=== PATIENT | female | born 1945 | race Caucasian/White ===

== ENCOUNTER 2017-12-27 16:37 | Inpatient (IN) | payer MEDICARE ==
[~2017-12-27] VITALS: Ht 165.1 cm; Wt 79.4 kg
--- NOTE | 2017-12-27 17:27 | EKG ---
[address] [address] Test Date: 2017-12-27 Test Time: 16:43:15 Pat Name: MARTINA TAPIA Department: Room: Gender: F Rn Call Center: : 1945 Requested By: SHELL JOY Order Number: [id number] Reading MD: Crescencio Turner MD Measurements Intervals [place] Rate: 89 P: 49 [place]: 166 QRS: 17 QRSD: 86 T: 52 QT: 344 QTc: 420 Interpretive Statements SINUS RHYTHM Electronically Signed On 12-31-2017 9:33:38 CDT by Crescencio Turner MD
[2017-12-27 17:40] LABS: BASO % 0 % (0-3); EOS # 0.2 x10^3/uL (0.0-0.7); EOS % 4 % (0-3); HEMATOCRIT 37.7 % (36.0-47.0); HEMOGLOBIN 12.7 g/dL (12.0-15.5); LYMPH # 1.2 x10^3/uL (1.0-4.8); LYMPH % 31 % (24-48); MEAN CORPUSCULAR HEMOGLOBIN 29 pg (25-35); MEAN CORPUSCULAR HGB CONC 34 g/dL (31-37); MEAN CORPUSCULAR VOLUME 86 fL (79-100); MONO # 0.5 x10^3/uL (0.0-1.1); MONO % 12 % (0-9); NEUT # 2.1 x10^3uL (1.8-7.7); NEUT % 53 % (31-73); PLATELET COUNT 154 x10^3/uL (140-400); RED BLOOD COUNT 4.37 x10^6/uL (3.50-5.40); RED CELL DISTRIBUTION WIDTH 14.4 % (11.5-14.5); WHITE BLOOD COUNT 3.9 x10^3/uL (4.0-11.0)
--- NOTE | 2017-12-27 17:41 | PHYS DOC ---
Past History Past Medical History: Anxiety, Bipolar, Depression Past Surgical History: No Surgical History Alcohol Use: None Drug Use: None Adult General Chief Complaint Chief Complaint: PSYCH EVALUATION HPI HPI 72-year-old female presents for behavioral health evaluation. The patient has been accepted by [facility]. She is reported to be in a manic phase for the last 1 month. She has been having delusions of people being after her. She has also had suicidal thoughts to include a plan of cutting herself. She stated "feel I wanted to withhold stated". She is accompanied by her daughter. Review of Systems Review of Systems Constitutional: Denies fever or chills [] Eyes: Denies change in visual acuity, redness, or eye pain [] HENT: Denies nasal congestion or sore throat [] Respiratory: Denies cough or shortness of breath [] Cardiovascular: No additional information not addressed in HPI [] GI: Denies abdominal pain, nausea, vomiting, bloody stools or diarrhea [] : Denies dysuria or hematuria [] Musculoskeletal: Denies back pain or joint pain [] Integument: Denies rash or skin lesions [] Neurologic: Denies headache, focal weakness or sensory changes [] Endocrine: Denies polyuria or polydipsia [] All other systems were reviewed and found to be within normal limits, except as documented in this note. Physical Exam Physical Exam Constitutional: Well developed, well nourished, no acute distress, non-toxic appearance. [] HENT: Normocephalic, atraumatic, bilateral external ears normal, oropharynx moist, no oral exudates, nose normal. [] Eyes: PERRLA, EOMI, conjunctiva normal, no discharge. [] Neck: Normal range of motion, no tenderness, supple, no stridor. [] Cardiovascular:Heart rate regular rhythm, no murmur [] Lungs & Thorax: Bilateral breath sounds clear to auscultation [] Abdomen: Bowel sounds normal, soft, no tenderness, no masses, no pulsatile masses. [] Skin: Warm, dry, no erythema, no rash. [] Back: No tenderness, no CVA tenderness. [] Extremities: No tenderness, no cyanosis, no clubbing, ROM intact, no edema. [] Neurologic: Alert and oriented X 3, normal motor function, normal sensory function, no focal deficits noted. [] Psychologic: Hyperactive, [] EKG EKG Sinus rhythm, rate 89, normal axis, nose elevations or depressions.[] Radiology/Procedures Radiology/Procedures [] Course & Med Decision Making Course & Med Decision Making Pertinent Labs and Imaging studies reviewed. (See chart for details) The patient's labs are significant for a slightly elevated creatinine and an elevated BUN. I have no previous records for comparison. I believe this will correct with proper oral rehydration during her admission. Her urine has some markers for infection, but given 0 bacteria and the fact that she is asymptomatic, I will wait on treatment pending culture results. She is stable for admission to the psych floor. [] Dragon Disclaimer Dragon Disclaimer This electronic medical record was generated, in whole or in part, using a voice recognition dictation system. Departure Departure: Referrals: RASHAD HAMILTON (PCP) SHELL JOY DO Dec 27, 2017 17:41
[2017-12-27 17:51] LABS: ALBUMIN 3.5 g/dL (3.4-5.0); ALBUMIN/GLOBULIN RATIO 1.1 (1.0-1.7); CALCIUM 9.2 mg/dL (8.5-10.1); CREATININE 1.4 mg/dL (0.6-1.0); MAGNESIUM 2.2 mg/dL (1.8-2.4); POTASSIUM 4.2 mmol/L (3.5-5.1); TOTAL BILIRUBIN 0.3 mg/dL (0.2-1.0); TOTAL PROTEIN 6.6 g/dL (6.4-8.2)
[2017-12-27 17:52] LABS: BILIRUBIN,URINE NEG (NEG); CLARITY,URINE HAZY; COLOR,URINE YELLOW; GLUCOSE,URINE NEG (NEG); NITRITE,URINE NEG (NEG); UROBILINOGEN,URINE 0.2 mg/dL (0.2 mg/dL)
[2017-12-27 17:53] LABS: BACTERIA,URINE 0 /HPF (0-FEW); SQUAMOUS EPITHELIAL CELL,UR FEW /LPF
--- NOTE | 2017-12-27 21:25 | NUR ---
Admission Note with Justification for Admission to [facility] Patient admitted to [facility] for protective oversight for emergency stabilization of acute psychiatric crisis. Pt admitted from: Hospital ER Mode of arrival: EMS Accompanied By: [facility] Staff Precipitating behaviors that initiated intake and admission:bipolar mandi w/ paranoia, suicidal ideation w/plan to cut wrist Description of failure of out patient attempts at stabilization in previous setting list behavior and medication trials:med changes Behaviors and assessment findings upon admission: Pt was talkative, compliant, and pleasant Plan: Admit for protective oversight for adjustment and stabilization of medications, behaviors and mood. Intense treatment regimen including groups, medication adjustments, therapy, consistent regimen for ADL's, self care, and sleep hygiene. Daily monitoring by Inpatient staff, Psychiatry, and Medical Physician.
[2017-12-27] MEDS ORDERED: ACETAMINOPHEN 325 MG TABLET PO PRN (21:30)
[2017-12-27] MEDS ORDERED: MAGNESIUM HYDROXIDE 2,400 MG/30 ML ORAL.SUSP. PO PRN (21:30)
[2017-12-27] MEDS ORDERED: MAG HYDROX/AL HYDROX/SIMETH 30 ML ORAL.SUSP PO PRN (21:30)
[2017-12-27] MEDS ORDERED: METHYL SALICYLATE/MENTHOL TOPICAL OINTMENT 29GM TUBE. TP PRN (21:30)
[2017-12-27] MEDS ORDERED: MELO7.5T29 PO (22:00)
[2017-12-27] MEDS ORDERED: FLUT1DIS5 IH (22:00)
[2017-12-27] MEDS ORDERED: BENZ0.5T32 PO (22:00)
[2017-12-27] MEDS ORDERED: GABA-586 PO (22:00)
[2017-12-27] MEDS ORDERED: SALI10002 MM (22:00)
[2017-12-27] MEDS ORDERED: CLON0.5T PO (22:00)
[2017-12-27] MEDS ORDERED: QUET50TA5 PO (22:00)
[2017-12-27] MEDS ORDERED: ALBU8.5H8 INH (22:00)
[2017-12-27] MEDS ORDERED: DIVA250T PO (22:00)
[2017-12-27] MEDS ORDERED: LEVO75TA5 PO (22:00)
[2017-12-27] MEDS ORDERED: QUET400T6 PO (22:00)
[2017-12-27] MEDS ORDERED: QUET100T4 PO (22:00)
[2017-12-27 22:29] LABS: VAL ACID 18 mcg/mL (50-100)
[2017-12-28] MEDS ORDERED: ALBUTEROL SULFATE 8GM INHALER. INH PRN
[2017-12-28] MEDS ORDERED: QUEtiapine 50 MG TABLET. PO PRN
[2017-12-28] MEDS: clonazePAM 0.5 MG TABLET PO PRN (01:31)
[2017-12-28] MEDS: LEVOTHYROXINE 75 MCG TABLET PO SCH (05:46)
[2017-12-28 05:49] VITALS: BP 97/59
[2017-12-28] MEDS ORDERED: ALBUTEROL SULFATE 2.5 MG/3 ML NEBU. NEB PRN (07:30)
[2017-12-28] MEDS: BUDESONIDE 0.5 MG/2 ML NEBU NEB SCH ×2 (08:00→20:33)
[2017-12-28] MEDS: BENZTROPINE MESYLATE 0.5 MG TABLET PO SCH ×2 (08:34→19:48)
[2017-12-28] MEDS: GABAPENTIN 300 MG CAPSULE. PO SCH ×3 (08:34→19:49)
[2017-12-28] MEDS: QUEtiapine 100 MG TABLET. PO SCH ×2 (08:36→19:49)
[2017-12-28] MEDS ORDERED: MELOXICAM 7.5 MG TABLET PO SCH (09:00)
[2017-12-28] MEDS ORDERED: NON FORMULARY ITEM (Fluticasone/Salmeterol (Advair 500-50 Diskus) 1 EACH) IH SCH (09:00)
[2017-12-28] MEDS: ALBUTEROL SULFATE 2.5 MG/3 ML NEBU. NEB SCH ×3 (12:00→20:33)
[2017-12-28 14:06] LABS: THYROID STIM HORMONE (TSH) 0.72 uIU/mL (0.358-3.740)
--- NOTE | 2017-12-28 14:44 | NUR ---
SW reviewed pt insurance information; pt has Medicare primary per [employer], intake and Face sheet.
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
--- NOTE | 2017-12-28 15:00 | NUR ---
Assumed care of patient. At this time she is sitting in her room writing in a notebook, alert, NAD, no needs or concerns, will continue to monitor.
[2017-12-28 15:55] VITALS: BP 132/78
[2017-12-28 19:11] LABS: THYROXINE 4.8 ug/dL (4.5-12.0)
[2017-12-28] MEDS: DIVALPROEX ER 500 MG TAB.ER.24H PO SCH (19:49)
--- NOTE | 2017-12-28 19:57 | PDOC ---
Exam Note: Vance Note: Please also refer to the separate dictated note~for this date of service dictated separately.~Patient seen individually. Discussed the patient with Nursing staff reviewed the chart.~Reviewed interim history and current functioning. Reviewed vital signs,~Labs/ Radiology~and current medications noted below. Continue current treatment with the changes noted in the dictated addendum note Assessment: Vital Signs: Vital Signs Date Time Temp Pulse Resp B/P (MAP) Pulse Ox O2 Delivery O2 Flow Rate FiO2 12/28/17 15:55 98.1 84 20 132/78 (96) 97 12/27/17 19:45 Room Air I&O Intake and Output 12/28/17 06:59 Intake Total 0 ml Balance 0 ml Intake Oral 0 ml Current Medications: Meds: Current Medications Acetaminophen (Tylenol) 650 mg PRN Q6HRS PRN PO PAIN / TEMP; Start 12/27/17 at 21:30 Multi-Ingredient Ointment (Analgesic Tyler) 1 lisa PRN QID PRN TP MUSCLE PAIN; Start 12/27/17 at 21:30 Al Hydroxide/Mg Hydroxide (Mylanta Plus Xs) 15 ml PRN AFTMEALHC PRN PO DYSPEPSIA; Start 12/27/17 at 21:30 Magnesium Hydroxide (Milk Of Magnesia) 2,400 mg PRN QHS PRN PO CONSTIPATION; Start 12/27/17 at 21:30 Clonazepam (KlonoPIN) 0.5 mg PRN BID PRN PO AGITATION Last administered on 12/28at 01:31; Start 12/28/17 at 00:00 Non-Formulary Medication (Quetiapine Fumarate (Seroquel Xr)) 400 mg QHS PO ; Start 12/28/17 at 21:00; Stop 12/28/17 at 21:00; Status DC Quetiapine Fumarate (SEROquel) 50 mg PRN BID PRN PO AGITATION; Start 12/28/17 at 00:00 Quetiapine Fumarate (SEROquel) 100 mg QHS PO ; Start 12/28/17 at 21:00; Stop at 21:00; Status DC Divalproex Sodium (Depakote Sprinkles) 250 mg HS PO ; Start 12/28/17 at 21:00; Stop 12/28/17 at 21:00; Status DC Albuterol Sulfate (Ventolin Hfa) 1 puff PRN Q6HRS PRN INH SHORTNESS OF BREATH; Start 12/28/17 at 00:00; Stop 12/28/17 at 07:20; Status DC Gabapentin (Neurontin) 300 mg TID PO Last administered on 12/28/17at 19:49; Start 12/28/17 at 09:00 Levothyroxine Sodium (Synthroid) 75 mcg DAILY06 PO Last administered on at 05:46; Start 12/28/17 at 06:00 Benztropine Mesylate (Cogentin) 0.5 mg BID PO Last administered on 12/28/17 19 :48; Start 12/28/17 at 09:00 Non-Formulary Medication (Fluticasone/ Salmeterol (Advair 500-50 Diskus)) 1 each BID IH ; Start 12/28/17 at 09:00; Stop 12/28/17 at 09:00; Status DC Meloxicam (Mobic) 7.5 mg DAILY PO Last administered on 12/28/17at 08:35; Start 12/28/17 at 09:00; Stop 12/28/17 at 12:57; Status DC Albuterol Sulfate (Ventolin) 2.5 mg Q6HRS NEB ; Start 12/28/17 at 12:00 Albuterol Sulfate (Ventolin) 2.5 mg PRN Q6HRS PRN NEB SHORTNESS OF BREATH; Start 12/28/17 at 07:30 Budesonide (Pulmicort) 0.5 mg RTBID NEB ; Start 12/28/17 at 08:00 Quetiapine Fumarate (SEROquel) 200 mg DAILY PO Last administered on 12/28/17at 08:36; Start 12/28/17 at 09:00 Quetiapine Fumarate (SEROquel) 300 mg HS PO Last administered on 12/28/17at 19: 49; Start 12/28/17 at 21:00 Divalproex Sodium (Depakote Sprinkles) 750 mg HS PO ; Start 12/28/17 at 21:00; Stop 12/28/17 at 21:00; Status DC Divalproex Sodium (Depakote Er) 1,000 mg QHS PO Last administered on 12/28/17at 19:49; Start 12/28/17 at 21:00 Active Scripts Active Reported Biotene (Saliva Substitution Combo No.9) 1,000 Ml Mouthwash 5 Ml MM TID Proair Hfa Inhaler (Albuterol Sulfate) 8.5 Gm Hfa.aer.ad 1 Puff INH PRN Q6HRS PRN Meloxicam 7.5 Mg Tablet 7.5 Mg PO DAILY Seroquel (Quetiapine Fumarate) 50 Mg Tablet 50 Mg PO PRN BID PRN Seroquel (Quetiapine Fumarate) 100 Mg Tablet 100 Mg PO QHS Seroquel Xr (Quetiapine Fumarate) 400 Mg Tab.er.24h 400 Mg PO QHS Levothyroxine Sodium 75 Mcg Tablet 75 Mcg PO DAILYAC Gabapentin 300 Mg Capsule 300 Mg PO TID Depakote Er (Divalproex Sodium) 250 Mg Tab.er.24h 750 Mg PO Klonopin (Clonazepam) 0.5 Mg Tablet 0.5 Mg PO PRN BID PRN Benztropine Mesylate 0.5 Mg Tablet 0.5 Mg PO BID Advair 500-50 Diskus (Fluticasone/Salmeterol) 1 Each Disk.w.dev 1 Each IH BID I have reviewed the current psychotropics carefully including drug interactions. Risk benefit ratio favors no change other than as noted in my dictated progress note. Diagnosis: Problems: (1) Anxiety disorder (2) Bipolar affective, mixed, sev w/ psych (3) Impulse control disorder SALLY CONTEH MD Dec 28, 2017 19:57
--- NOTE | 2017-12-28 20:59 | NUR ---
Nursing note: Assumed care of patient in her room. She was sleeping but easily aroused. She was happy and interactive, stating that she had not slept well her first night here. She was compliant w/meds and assessment. Pt is A&OX4. She spoke w/edmond on phone. Pt stated she was feeling much better and was not feeling suicidal. She says she spoke w/social science professor today and she now knows suicide is wrong and doesn't have ay plan to hurt herself.
[2017-12-28] MEDS ORDERED: QUEtiapine 100 MG TABLET. PO SCH (21:00)
[2017-12-28] MEDS ORDERED: QUETIAPINE FUMARATE 400 MG PO SCH (21:00)
[2017-12-28] MEDS ORDERED: DIVALPROEX 125 MG CAP.SPRINK PO SCH ×2 (21:00)
--- NOTE | 2017-12-28 23:32 | CONS ---
DATE OF CONSULTATION: REASON FOR CONSULTATION: Medical management. HISTORY OF PRESENT ILLNESS: The patient is a 72-year-old female patient who is known to have bipolar disorder and currently in manic stage. She is paranoid, stating somebody is in her house, suicidal with a plan to cut her wrist. Medication adjustment was tried in the past couple of months without much success and was admitted for inpatient psychiatric stabilization. PAST MEDICAL HISTORY: Her past medical history is significant for bronchial asthma, unsteady gait, history of blood clots in her lungs. She is also known to have hypothyroidism and myasthenia gravis. PAST SURGICAL HISTORY: Unremarkable. REVIEW OF SYSTEMS: As per history of present illness. ALLERGIES: She has no known drug allergies. MEDICATIONS: She is currently on following medications: She is on albuterol sulfate 1 puff every 6 hours, meloxicam 7.5 mg once a day, clonazepam 0.5 mg twice a day as needed, Depakote extended release 750 mg at bedtime as a mood stabilizer, gabapentin 300 mg 3 times a day, quetiapine fumarate 400 mg at bedtime, and Seroquel 100 mg at bedtime and Seroquel 50 mg twice a day. She is on benztropine mesylate 0.5 mg twice a day, Advair Diskus 500/50 one puff twice a day. She is also on levothyroxine sodium 75 mcg daily and saliva substitution Biotene 5 mL 3 times a day. PHYSICAL EXAMINATION: GENERAL: When I examined her, the patient was sitting on the edge of the bed comfortably, in no apparent distress, slightly pale, but no jaundice, cyanosis, or thyromegaly. No jugular venous distension. No lower limb edema. VITAL SIGNS: Her heart rate was 85, blood pressure was 97/59, temperature was 97.9, respiratory rate was 20, and oxygen saturation was 96% on room air. HEENT: Examination of the head, eyes, ears, nose, and throat showed normocephalic, atraumatic. NECK: Supple. HEART: Showed normal first and second heart sound with no gallop, rub or murmur. CHEST: Clear to auscultation. No crepitation or rhonchi. ABDOMEN: Distended, soft, nontender. No guarding or rigidity. No organomegaly. Her hernial orifices are intact. Bowel sounds normal. NEUROLOGIC: She is awake, alert, responding appropriately. All her cranial nerves are intact. She has some nasal twang likely reflecting her the fact she has myasthenia gravis; however, all her cranial nerves are intact. EXTREMITIES: She moves extremities without difficulty. She walks with a walker. LABORATORY DATA: Her lab work showed serum sodium 142, potassium 4.2, chloride 110, bicarbonate 27, anion gap of 5, BUN 37, creatinine 1.4, estimated GFR was 57 mL per minute, her glucose 104, calcium was 9.2, magnesium 2.2. Total bilirubin, AST, ALT, alkaline phosphatase was normal. Total protein was 6.6, albumin was 3.5. His white cell count was 3900, hemoglobin 13, hematocrit 38, MCV 86, and platelet count of 154,000. Urinalysis showed the urine was yellow, hazy with a pH of 7.5, specific gravity of 1.015. There was a trace of protein, negative for glucose, ketones, trace of blood, negative for nitrite and leukocyte esterase. There are no RBCs, 5-10 WBCs, and no bacteria. Urine toxicology screen showed valproic acid to be 118 micrograms per mL, which is subtherapeutic. ASSESSMENT AND PLAN: So, in summary, this is a 72-year-old female patient, who was admitted with delusions, paranoia that somebody is in her house, suicidal with a plan to cut her wrist. All this has been going on for almost a month now in a background of bipolar disorder. She is currently in manic phase. She has multiple medical problems including bronchial asthma, unsteady gait, history of deep vein thrombosis, and also hypothyroidism. Her lab work showed that she has slightly impaired kidney function; however, overall, she seemed to be medically stable. I will follow all the lab works that are still pending at the time of this dictation and make any necessary recommendation. Thank you, Dr. Chandler, for allowing me to participate in the care of this patient. EMERSON HONG MD DR: LENORE/pranav JOB#: [id number] / [id number]
[2017-12-29 01:12] LABS: HEMOGLOBIN A1C 5.2 % (4.8-5.6)
[2017-12-29] MEDS: ALBUTEROL SULFATE 2.5 MG/3 ML NEBU. NEB SCH ×4 (05:32→20:21)
[2017-12-29 05:54] VITALS: BP 117/72
[2017-12-29] MEDS: LEVOTHYROXINE 75 MCG TABLET PO SCH (06:22)
[2017-12-29] MEDS: QUEtiapine 100 MG TABLET. PO SCH ×2 (08:24→20:04)
[2017-12-29] MEDS: GABAPENTIN 300 MG CAPSULE. PO SCH ×3 (08:25→20:03)
[2017-12-29] MEDS: BENZTROPINE MESYLATE 0.5 MG TABLET PO SCH ×2 (08:25→20:03)
[2017-12-29] MEDS: BUDESONIDE 0.5 MG/2 ML NEBU NEB SCH ×2 (10:30→20:21)
[2017-12-29 16:13] VITALS: BP 100/78
[2017-12-29] MEDS: clonazePAM 0.5 MG TABLET PO PRN (18:20)
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
[2017-12-29] MEDS: DIVALPROEX ER 500 MG TAB.ER.24H PO SCH (20:04)
--- NOTE | 2017-12-29 22:04 | NUR ---
Behavior Intervention Response and Plan: BIRP Note: Behavior: Assumed Care of patient, patient located in Day Room at shift change. Patient exhibited the following behavior Interactive, Compliant, Cooperative. Brief assessment on rounds of vital signs, medication needs, lab studies, and pain. Treatment plan problems 1-2. Intervention: Patient assessed and the following interventions initiated safety checks 15 Minute Checks Cognitive Assessment , Head to toe Assessment , Medications. Response: After interactions and interventions patient responded in the following manner, Social , Cooperative ,Compliant. Continue to assess behaviors and condition will continue to monitor throughout the shift as needed. Patient educated on ADL's, and hand hygiene. Plan: Continue to monitor Master Treatment Plan for patient's progress toward short term goals of Improved Mood, No harm To self/ others, jail goals to return to previous living setting vs placement. Continue to assess patient for changes in above assessment. Monitor for medication needs, pain, and safety concerns. Hourly rounding performed to ensure safe environment.
--- NOTE | 2017-12-29 22:25 | PDOC ---
Exam Note: Vance Note: Please also refer to the separate dictated note~for this date of service dictated separately.~Patient seen individually. Discussed the patient with Nursing staff reviewed the chart.~Reviewed interim history and current functioning. Reviewed vital signs,~Labs/ Radiology~and current medications noted below. Continue current treatment with the changes noted in the dictated addendum note Assessment: Vital Signs: Vital Signs Date Time Temp Pulse Resp B/P (MAP) Pulse Ox O2 Delivery O2 Flow Rate FiO2 12/29/17 20:20 99 Room Air 12/29/17 16:13 97.3 98 20 100/78 (85) I&O Intake and Output 12/29/17 06:59 Intake Total 1320 ml Balance 1320 ml Intake Oral 1320 ml Current Medications: Meds: Current Medications Acetaminophen (Tylenol) 650 mg PRN Q6HRS PRN PO PAIN / TEMP; Start 12/27/17 at 21:30 Multi-Ingredient Ointment (Analgesic [place]) 1 lisa PRN QID PRN TP MUSCLE PAIN; Start 12/27/17 at 21:30 Al Hydroxide/Mg Hydroxide (Mylanta Plus Xs) 15 ml PRN AFTMEALHC PRN PO DYSPEPSIA; Start 12/27/17 at 21:30 Magnesium Hydroxide (Milk Of Magnesia) 2,400 mg PRN QHS PRN PO CONSTIPATION; Start 12/27/17 at 21:30 Clonazepam (KlonoPIN) 0.5 mg PRN BID PRN PO AGITATION Last administered on 12/29at 18:20; Start 12/28/17 at 00:00 Non-Formulary Medication (Quetiapine Fumarate (Seroquel Xr)) 400 mg QHS PO ; Start 12/28/17 at 21:00; Stop 12/28/17 at 21:00; Status DC Quetiapine Fumarate (SEROquel) 50 mg PRN BID PRN PO AGITATION; Start 12/28/17 at 00:00; Stop 12/29/17 at 18:28; Status DC Quetiapine Fumarate (SEROquel) 100 mg QHS PO ; Start 12/28/17 at 21:00; Stop at 21:00; Status DC Divalproex Sodium (Depakote Sprinkles) 250 mg HS PO ; Start 12/28/17 at 21:00; Stop 12/28/17 at 21:00; Status DC Albuterol Sulfate (Ventolin Hfa) 1 puff PRN Q6HRS PRN INH SHORTNESS OF BREATH; Start 12/28/17 at 00:00; Stop 12/28/17 at 07:20; Status DC Gabapentin (Neurontin) 300 mg TID PO Last administered on 12/29/17 20:03; Start 12/28/17 at 09:00 Levothyroxine Sodium (Synthroid) 75 mcg DAILY06 PO Last administered on 06:22; Start 12/28/17 at 06:00 Benztropine Mesylate (Cogentin) 0.5 mg BID PO Last administered on 12/29/17 20 :03; Start 12/28/17 at 09:00 Non-Formulary Medication (Fluticasone/ Salmeterol (Advair 500-50 Diskus)) 1 each BID IH ; Start 12/28/17 at 09:00; Stop 12/28/17 at 09:00; Status DC Meloxicam (Mobic) 7.5 mg DAILY PO Last administered on 12/28/17at 08:35; Start 12/28/17 at 09:00; Stop 12/28/17 at 12:57; Status DC Albuterol Sulfate (Ventolin) 2.5 mg Q6HRS NEB Last administered on 12/29/17 20 :21; Start 12/28/17 at 12:00 Albuterol Sulfate (Ventolin) 2.5 mg PRN Q6HRS PRN NEB SHORTNESS OF BREATH; Start 12/28/17 at 07:30 Budesonide (Pulmicort) 0.5 mg RTBID NEB Last administered on 12/29/17 20:21; Start 12/28/17 at 08:00 Quetiapine Fumarate (SEROquel) 200 mg DAILY PO Last administered on 12/29/17 08:24; Start 12/28/17 at 09:00 Quetiapine Fumarate (SEROquel) 300 mg HS PO Last administered on 12/29/17 20: 04; Start 12/28/17 at 21:00 Divalproex Sodium (Depakote Sprinkles) 750 mg HS PO ; Start 12/28/17 at 21:00; Stop 12/28/17 at 21:00; Status DC Divalproex Sodium (Depakote Er) 1,000 mg QHS PO Last administered on 12/29/17at 20:04; Start 12/28/17 at 21:00 Olanzapine (ZyPREXA ZYDIS) 2.5 mg PRN Q2HR PRN PO PSYCHOSIS; Start 12/29/17 at 18:30 Active Scripts Active Reported Biotene (Saliva Substitution Combo No.9) 1,000 Ml Mouthwash 5 Ml MM TID Proair Hfa Inhaler (Albuterol Sulfate) 8.5 Gm Hfa.aer.ad 1 Puff INH PRN Q6HRS PRN Meloxicam 7.5 Mg Tablet 7.5 Mg PO DAILY Seroquel (Quetiapine Fumarate) 50 Mg Tablet 50 Mg PO PRN BID PRN Seroquel (Quetiapine Fumarate) 100 Mg Tablet 100 Mg PO QHS Seroquel Xr (Quetiapine Fumarate) 400 Mg Tab.er.24h 400 Mg PO QHS Levothyroxine Sodium 75 Mcg Tablet 75 Mcg PO DAILYAC Gabapentin 300 Mg Capsule 300 Mg PO TID Depakote Er (Divalproex Sodium) 250 Mg Tab.er.24h 750 Mg PO Klonopin (Clonazepam) 0.5 Mg Tablet 0.5 Mg PO PRN BID PRN Benztropine Mesylate 0.5 Mg Tablet 0.5 Mg PO BID Advair 500-50 Diskus (Fluticasone/Salmeterol) 1 Each Disk.w.dev 1 Each IH BID I have reviewed the current psychotropics carefully including drug interactions. Risk benefit ratio favors no change other than as noted in my dictated progress note. Diagnosis: Problems: (1) Anxiety disorder (2) Bipolar affective, mixed, sev w/ psych (3) Impulse control disorder SALLY CONTEH MD Dec 29, 2017 22:25
[2017-12-30] MEDS: ALBUTEROL SULFATE 2.5 MG/3 ML NEBU. NEB SCH ×4 (05:58→20:24)
[2017-12-30 06:03] VITALS: BP 106/51
[2017-12-30] MEDS: LEVOTHYROXINE 75 MCG TABLET PO SCH (06:14)
[2017-12-30] MEDS: QUEtiapine 100 MG TABLET. PO SCH ×2 (07:58→19:52)
[2017-12-30] MEDS: BENZTROPINE MESYLATE 0.5 MG TABLET PO SCH ×2 (07:58→19:53)
[2017-12-30] MEDS: GABAPENTIN 300 MG CAPSULE. PO SCH ×3 (07:58→19:53)
[2017-12-30] MEDS: BUDESONIDE 0.5 MG/2 ML NEBU NEB SCH ×2 (08:00→20:24)
[2017-12-30 16:18] VITALS: BP 106/81
[2017-12-30] MEDS: DIVALPROEX ER 500 MG TAB.ER.24H PO SCH (19:53)
--- NOTE | 2017-12-30 20:57 | PDOC ---
Exam Note: Vance Note: Please also refer to the separate dictated note~for this date of service dictated separately.~Patient seen individually. Discussed the patient with Nursing staff reviewed the chart.~Reviewed interim history and current functioning. Reviewed vital signs,~Labs/ Radiology~and current medications noted below. Continue current treatment with the changes noted in the dictated addendum note Assessment: Vital Signs: Vital Signs Date Time Temp Pulse Resp B/P (MAP) Pulse Ox O2 Delivery O2 Flow Rate FiO2 12/30/17 20:15 95 Room Air 12/30/17 16:18 97.3 98 18 106/81 (89) I&O Intake and Output 12/30/17 07:00 Intake Total 1320 ml Balance 1320 ml Intake Oral 1320 ml Current Medications: Meds: Current Medications Acetaminophen (Tylenol) 650 mg PRN Q6HRS PRN PO PAIN / TEMP; Start 12/27/17 at 21:30 Multi-Ingredient Ointment (Analgesic [place]) 1 lisa PRN QID PRN TP MUSCLE PAIN; Start 12/27/17 at 21:30 Al Hydroxide/Mg Hydroxide (Mylanta Plus Xs) 15 ml PRN AFTMEALHC PRN PO DYSPEPSIA; Start 12/27/17 at 21:30 Magnesium Hydroxide (Milk Of Magnesia) 2,400 mg PRN QHS PRN PO CONSTIPATION; Start 12/27/17 at 21:30 Clonazepam (KlonoPIN) 0.5 mg PRN BID PRN PO AGITATION Last administered on 12/29at 18:20; Start 12/28/17 at 00:00 Non-Formulary Medication (Quetiapine Fumarate (Seroquel Xr)) 400 mg QHS PO ; Start 12/28/17 at 21:00; Stop 12/28/17 at 21:00; Status DC Quetiapine Fumarate (SEROquel) 50 mg PRN BID PRN PO AGITATION; Start 12/28/17 at 00:00; Stop 12/29/17 at 18:28; Status DC Quetiapine Fumarate (SEROquel) 100 mg QHS PO ; Start 12/28/17 at 21:00; Stop at 21:00; Status DC Divalproex Sodium (Depakote Sprinkles) 250 mg HS PO ; Start 12/28/17 at 21:00; Stop 12/28/17 at 21:00; Status DC Albuterol Sulfate (Ventolin Hfa) 1 puff PRN Q6HRS PRN INH SHORTNESS OF BREATH; Start 12/28/17 at 00:00; Stop 12/28/17 at 07:20; Status DC Gabapentin (Neurontin) 300 mg TID PO Last administered on 12/30/17 19:53; Start 12/28/17 at 09:00 Levothyroxine Sodium (Synthroid) 75 mcg DAILY06 PO Last administered on 06:14; Start 12/28/17 at 06:00 Benztropine Mesylate (Cogentin) 0.5 mg BID PO Last administered on 12/30/17 19: 53; Start 12/28/17 at 09:00 Non-Formulary Medication (Fluticasone/ Salmeterol (Advair 500-50 Diskus)) 1 each BID IH ; Start 12/28/17 at 09:00; Stop 12/28/17 at 09:00; Status DC Meloxicam (Mobic) 7.5 mg DAILY PO Last administered on 12/28/17at 08:35; Start 12/28/17 at 09:00; Stop 12/28/17 at 12:57; Status DC Albuterol Sulfate (Ventolin) 2.5 mg Q6HRS NEB Last administered on 12/30/17 20: 24; Start 12/28/17 at 12:00 Albuterol Sulfate (Ventolin) 2.5 mg PRN Q6HRS PRN NEB SHORTNESS OF BREATH; Start 12/28/17 at 07:30 Budesonide (Pulmicort) 0.5 mg RTBID NEB Last administered on 12/30/17 20:24; Start 12/28/17 at 08:00 Quetiapine Fumarate (SEROquel) 200 mg DAILY PO Last administered on 12/30/17 07 :58; Start 12/28/17 at 09:00 Quetiapine Fumarate (SEROquel) 300 mg HS PO Last administered on 12/30/17 19:52 ; Start 12/28/17 at 21:00 Divalproex Sodium (Depakote Sprinkles) 750 mg HS PO ; Start 12/28/17 at 21:00; Stop 12/28/17 at 21:00; Status DC Divalproex Sodium (Depakote Er) 1,000 mg QHS PO Last administered on 12/30/17at 19:53; Start 12/28/17 at 21:00 Olanzapine (ZyPREXA ZYDIS) 2.5 mg PRN Q2HR PRN PO PSYCHOSIS; Start 12/29/17 at 18:30 Active Scripts Active Reported Biotene (Saliva Substitution Combo No.9) 1,000 Ml Mouthwash 5 Ml MM TID Proair Hfa Inhaler (Albuterol Sulfate) 8.5 Gm Hfa.aer.ad 1 Puff INH PRN Q6HRS PRN Meloxicam 7.5 Mg Tablet 7.5 Mg PO DAILY Seroquel (Quetiapine Fumarate) 50 Mg Tablet 50 Mg PO PRN BID PRN Seroquel (Quetiapine Fumarate) 100 Mg Tablet 100 Mg PO QHS Seroquel Xr (Quetiapine Fumarate) 400 Mg Tab.er.24h 400 Mg PO QHS Levothyroxine Sodium 75 Mcg Tablet 75 Mcg PO DAILYAC Gabapentin 300 Mg Capsule 300 Mg PO TID Depakote Er (Divalproex Sodium) 250 Mg Tab.er.24h 750 Mg PO Klonopin (Clonazepam) 0.5 Mg Tablet 0.5 Mg PO PRN BID PRN Benztropine Mesylate 0.5 Mg Tablet 0.5 Mg PO BID Advair 500-50 Diskus (Fluticasone/Salmeterol) 1 Each Disk.w.dev 1 Each IH BID I have reviewed the current psychotropics carefully including drug interactions. Risk benefit ratio favors no change other than as noted in my dictated progress note. Diagnosis: Problems: (1) Anxiety disorder (2) Bipolar affective, mixed, sev w/ psych (3) Impulse control disorder SALLY CONTEH MD Dec 30, 2017 20:57
--- NOTE | 2017-12-30 22:45 | NUR ---
Nursing note: At shift change patient is happily talking on the phone with her daughter. Upon assessment pt ishappy and interactive in the dayroom, enjoying a movie with the other patients. She was compliant with medications and assessment. Pt is A&OX4. Patients states that she is ready to go home, but knows that she is here to adjust her medications. Patients denies SI at this time, stating that she would never do something like that as a [employer] women.
--- NOTE | 2017-12-30 23:56 | PN ---
DATE: 12/30/2017 PSYCHIATRIC PROGRESS NOTE This note covers elements not covered in my initial note 12/30/2017. SUBJECTIVE: The patient was seen individually in the evening. She slept 6-1/2 hours previous evening, remains somewhat hyperverbal, but less so than before. REVIEW OF SYSTEMS: No CV, , pulmonary, eye, ENT system symptoms on review. MENTAL STATUS EXAM: Reasonably oriented. Speech coherent, rapid at times. Abstraction fair, computation impaired, language function intact, attention span short. Mood and affect, somewhat grandiose, hyperverbal. We discussed her diagnoses, medication adjustment. Valproic acid level at length. She was able to follow this. LABORATORY DATA: Reviewed. IMPRESSION: Unchanged from initial note. PLAN: Continue psychotropics from initial note. The patient was stating she is ready to leave, her daughter helped her to talk her into staying, so that she can talk to sr. social media & mobile manager. Adjust further as clinically indicated. SALLY CONTEH MD DR: ORLANDO/pranav JOB#: [id number] / [id number]
[2017-12-31] MEDS: clonazePAM 0.5 MG TABLET PO PRN (01:22)
--- NOTE | 2017-12-31 04:37 | PN ---
DATE: 12/29/2017 This is a late entry, 12/29/2017, covers the elements not covered in my initial note, 12/29/2017. SUBJECTIVE: I met with the patient in the evening. The patient slept 8-1/2 hours previous evening. She has been cooperative, pleasant, social, and helpful with others. She continues to be somewhat manic with racing thoughts, rapid speech. REVIEW OF SYSTEMS: No CV, , pulmonary, eye, ENT system symptoms on review. She is not wanting to share any information with her , [place]. MENTAL STATUS EXAM: Oriented reasonably. Speech is coherent, pressured. Abstraction fair, computation impaired, language function intact. Mood and affect remain somewhat grandiose. LABORATORY DATA: Reviewed. IMPRESSION: Unchanged from initial note. Valproic acid level is 18. Depakote is being adjusted. PLAN: Maintain rest of the psychotropics from initial note. Depakote has been increased. We will repeat labs level on 12/31/2017. SALLY CONTEH MD DR: [place]O/pranav JOB#: [id number] / [id number]
[2017-12-31] MEDS: ALBUTEROL SULFATE 2.5 MG/3 ML NEBU. NEB SCH ×4 (05:48→21:44)
[2017-12-31] MEDS: LEVOTHYROXINE 75 MCG TABLET PO SCH (06:05)
[2017-12-31 06:18] VITALS: BP 130/51
[2017-12-31 07:27] LABS: BASO % 0 % (0-3); EOS # 0.1 x10^3/uL (0.0-0.7); EOS % 4 % (0-3); HEMOGLOBIN 12.6 g/dL (12.0-15.5); LYMPH % 30 % (24-48); MEAN CORPUSCULAR HEMOGLOBIN 29 pg (25-35); MEAN CORPUSCULAR HGB CONC 33 g/dL (31-37); MEAN CORPUSCULAR VOLUME 87 fL (79-100); MONO # 0.4 x10^3/uL (0.0-1.1); MONO % 11 % (0-9); NEUT # 1.8 x10^3uL (1.8-7.7); NEUT % 55 % (31-73); PLATELET COUNT 151 x10^3/uL (140-400); RED BLOOD COUNT 4.38 x10^6/uL (3.50-5.40); RED CELL DISTRIBUTION WIDTH 14.5 % (11.5-14.5); WHITE BLOOD COUNT 3.3 x10^3/uL (4.0-11.0)
[2017-12-31 07:36] LABS: ALBUMIN 3.3 g/dL (3.4-5.0); ALBUMIN/GLOBULIN RATIO 1.1 (1.0-1.7); ALK PHOS 128 U/L (46-116); ALT (SGPT) 17 U/L (14-59); ANION GAP 4 (6-14); AST (SGOT) 16 U/L (15-37); BLOOD UREA NITROGEN 19 mg/dL (7-20); BUN/CREATININE RATIO 17 (6-20); CALCIUM 9.7 mg/dL (8.5-10.1); CARBON DIOXIDE 30 mmol/L (21-32); CHLORIDE 110 mmol/L (98-107); CREATININE 1.1 mg/dL (0.6-1.0); GFR 48.8; GLUCOSE 83 mg/dL (70-99); POTASSIUM 4.1 mmol/L (3.5-5.1); SODIUM 144 mmol/L (136-145); TOTAL BILIRUBIN 0.3 mg/dL (0.2-1.0); TOTAL PROTEIN 6.4 g/dL (6.4-8.2)
[2017-12-31 07:43] LABS: VAL ACID 64 mcg/mL (50-100)
[2017-12-31] MEDS: BUDESONIDE 0.5 MG/2 ML NEBU NEB SCH ×2 (08:00→21:44)
[2017-12-31] MEDS: BENZTROPINE MESYLATE 0.5 MG TABLET PO SCH ×2 (08:07→20:11)
[2017-12-31] MEDS: GABAPENTIN 300 MG CAPSULE. PO SCH ×3 (08:07→20:11)
[2017-12-31] MEDS: QUEtiapine 100 MG TABLET. PO SCH ×2 (08:08→20:04)
--- NOTE | 2017-12-31 09:53 | NUR ---
Behavior Intervention Response and Plan: BIRP Note: Behavior: Assumed Care of patient, patient located in Hallway at shift change. Patient exhibited the following behavior Calm, Appropriate, Compliant. Brief assessment on rounds of vital signs, medication needs, lab studies, and pain. Treatment plan problems 1-2. Intervention: Patient assessed and the following interventions initiated safety checks 15 Minute Checks Cognitive Assessment , Head to toe Assessment , Medications. Response: After interactions and interventions patient responded in the following manner, Appropriate , Compliant ,Cooperative. Continue to assess behaviors and condition will continue to monitor throughout the shift as needed. Patient educated on ADL's, and hand hygiene. Plan: Continue to monitor Master Treatment Plan for patient's progress toward short term goals of Medication Compliance, No harm To self/ others, roasterman goals to return to previous living setting vs placement. Continue to assess patient for changes in above assessment. Monitor for medication needs, pain, and safety concerns. Hourly rounding performed to ensure safe environment.
--- NOTE | 2017-12-31 11:45 | NUR ---
Activity Therapy Assessment Completed based on observation and interview. Pt. was waking up from a nap when therapist arrived and was friendly and pleasant. Pt. was able to articulate and identify where she was and why she was admitted to the hospital. Pt. explained that she was 'having a hard time breathing' and that it was similar to a panic attack. She referred to notes that she and her daughter had compiled to help her remember her diagnoses. Pt. is here to adjust her medication- saying that without it she 'gets worse, shaky, and moves too fast'. Pt. is and has 'two children, a step daughter, two grandkids and six great grandkids' that she gets to see fairly often. Pt. daughter is a psych nurse and 'knows me really well'. During the interview, Pt. tended to ramble and tell stories but was easily redirected by therapist. Pt. expressed that she enjoyed walking her dog and watching movies with her daughter. Pt. was comfortable discussing her diagnoses and difficulties she faces when experiencing a manic state. Pt. states that 'it is hard to relax when I am stressed because I move too fast'. During group, Pt. was observed engaging easily with staff and other patients. Pt. follows directions easily, sings to music and laughs often. Initial goal: Pt. will participate in all relaxation activities offered
[2017-12-31 16:00] VITALS: BP 124/75
[2017-12-31] MEDS: DIVALPROEX ER 500 MG TAB.ER.24H PO SCH (20:11)
--- NOTE | 2017-12-31 20:59 | PDOC ---
Exam Note: Vance Note: Please also refer to the separate dictated note~for this date of service dictated separately.~Patient seen individually. Discussed the patient with Nursing staff reviewed the chart.~Reviewed interim history and current functioning. Reviewed vital signs,~Labs/ Radiology~and current medications noted below. Continue current treatment with the changes noted in the dictated addendum note Assessment: Vital Signs: Vital Signs Date Time Temp Pulse Resp B/P (MAP) Pulse Ox O2 Delivery O2 Flow Rate FiO2 12/31/17 17:45 Room Air 12/31/17 16:00 98.2 89 18 124/75 (91) 95 I&O Intake and Output 12/31/17 06:59 Intake Total 1320 ml Balance 1320 ml Intake Oral 1320 ml Labs: Laboratory Tests Test 12/31/17 06:57 White Blood Count 3.3 x10^3/uL (4.0-11.0) L Red Blood Count 4.38 x10^6/uL (3.50-5.40) Hemoglobin 12.6 g/dL (12.0-15.5) Hematocrit 38.0 % (36.0-47.0) Mean Corpuscular Volume 87 fL (79-100) Mean Corpuscular Hemoglobin 29 pg (25-35) Mean Corpuscular Hemoglobin Concent 33 g/dL (31-37) Red Cell Distribution Width 14.5 % (11.5-14.5) Platelet Count 151 x10^3/uL (140-400) Neutrophils (%) (Auto) 55 % (31-73) Lymphocytes (%) (Auto) 30 % (24-48) Monocytes (%) (Auto) 11 % (0-9) H Eosinophils (%) (Auto) 4 % (0-3) H Basophils (%) (Auto) 0 % (0-3) Neutrophils # (Auto) 1.8 x10^3uL (1.8-7.7) Lymphocytes # (Auto) 1.0 x10^3/uL (1.0-4.8) Monocytes # (Auto) 0.4 x10^3/uL (0.0-1.1) Eosinophils # (Auto) 0.1 x10^3/uL (0.0-0.7) Basophils # (Auto) 0.0 x10^3/uL (0.0-0.2) Sodium Level 144 mmol/L (136-145) Potassium Level 4.1 mmol/L (3.5-5.1) Chloride Level 110 mmol/L (98-107) H Carbon Dioxide Level 30 mmol/L (21-32) Anion Gap 4 (6-14) L Blood Urea Nitrogen 19 mg/dL (7-20) Creatinine 1.1 mg/dL (0.6-1.0) H Estimated GFR (Cockcroft-Gault) 48.8 BUN/Creatinine Ratio 17 (6-20) Glucose Level 83 mg/dL (70-99) Calcium Level 9.7 mg/dL (8.5-10.1) Total Bilirubin 0.3 mg/dL (0.2-1.0) Aspartate Amino Transferase (AST) 16 U/L (15-37) Alanine Aminotransferase (ALT) 17 U/L (14-59) Alkaline Phosphatase 128 U/L (46-116) H Total Protein 6.4 g/dL (6.4-8.2) Albumin 3.3 g/dL (3.4-5.0) L Albumin/Globulin Ratio 1.1 (1.0-1.7) Valproic Acid Level 64 mcg/mL (50-100) Valproic Acid Last Dose Date 12/30/17 Valproic Acid Last Dose Time 2100 Current Medications: Meds: Current Medications Acetaminophen (Tylenol) 650 mg PRN Q6HRS PRN PO PAIN / TEMP Last administered on 12/31/17at 20:13; Start 12/27/17 at 21:30 Multi-Ingredient Ointment (Analgesic [place]) 1 lisa PRN QID PRN TP MUSCLE PAIN; Start 12/27/17 at 21:30 Al Hydroxide/Mg Hydroxide (Mylanta Plus Xs) 15 ml PRN AFTMEALHC PRN PO DYSPEPSIA; Start 12/27/17 at 21:30 Magnesium Hydroxide (Milk Of Magnesia) 2,400 mg PRN QHS PRN PO CONSTIPATION; Start 12/27/17 at 21:30 Clonazepam (KlonoPIN) 0.5 mg PRN BID PRN PO AGITATION Last administered on at 01:22; Start 12/28/17 at 00:00 Non-Formulary Medication (Quetiapine Fumarate (Seroquel Xr)) 400 mg QHS PO ; Start 12/28/17 at 21:00; Stop 12/28/17 at 21:00; Status DC Quetiapine Fumarate (SEROquel) 50 mg PRN BID PRN PO AGITATION; Start 12/28/17 at 00:00; Stop 12/29/17 at 18:28; Status DC Quetiapine Fumarate (SEROquel) 100 mg QHS PO ; Start 12/28/17 at 21:00; Stop at 21:00; Status DC Divalproex Sodium (Depakote Sprinkles) 250 mg HS PO ; Start 12/28/17 at 21:00; Stop 12/28/17 at 21:00; Status DC Albuterol Sulfate (Ventolin Hfa) 1 puff PRN Q6HRS PRN INH SHORTNESS OF BREATH; Start 12/28/17 at 00:00; Stop 12/28/17 at 07:20; Status DC Gabapentin (Neurontin) 300 mg TID PO Last administered on 12/31/17at 20:11; Start 12/28/17 at 09:00 Levothyroxine Sodium (Synthroid) 75 mcg DAILY06 PO Last administered on at 06:05; Start 12/28/17 at 06:00 Benztropine Mesylate (Cogentin) 0.5 mg BID PO Last administered on 12/31/17at 20: 11; Start 12/28/17 at 09:00 Non-Formulary Medication (Fluticasone/ Salmeterol (Advair 500-50 Diskus)) 1 each BID IH ; Start 12/28/17 at 09:00; Stop 12/28/17 at 09:00; Status DC Meloxicam (Mobic) 7.5 mg DAILY PO Last administered on 12/28/17at 08:35; Start 12/28/17 at 09:00; Stop 12/28/17 at 12:57; Status DC Albuterol Sulfate (Ventolin) 2.5 mg Q6HRS NEB Last administered on 12/31/17at 17: 44; Start 12/28/17 at 12:00 Albuterol Sulfate (Ventolin) 2.5 mg PRN Q6HRS PRN NEB SHORTNESS OF BREATH; Start 12/28/17 at 07:30 Budesonide (Pulmicort) 0.5 mg RTBID NEB Last administered on 12/31/17at 08:00; Start 12/28/17 at 08:00 Quetiapine Fumarate (SEROquel) 200 mg DAILY PO Last administered on 12/31/17at 08 :08; Start 12/28/17 at 09:00 Quetiapine Fumarate (SEROquel) 300 mg HS PO Last administered on 12/31/17at 20:04 ; Start 12/28/17 at 21:00 Divalproex Sodium (Depakote Sprinkles) 750 mg HS PO ; Start 12/28/17 at 21:00; Stop 12/28/17 at 21:00; Status DC Divalproex Sodium (Depakote Er) 1,000 mg QHS PO Last administered on 12/31/17at 20:11; Start 12/28/17 at 21:00 Olanzapine (ZyPREXA ZYDIS) 2.5 mg PRN Q2HR PRN PO PSYCHOSIS; Start 12/29/17 at 18:30 Active Scripts Active Reported Biotene (Saliva Substitution Combo No.9) 1,000 Ml Mouthwash 5 Ml MM TID Proair Hfa Inhaler (Albuterol Sulfate) 8.5 Gm Hfa.aer.ad 1 Puff INH PRN Q6HRS PRN Meloxicam 7.5 Mg Tablet 7.5 Mg PO DAILY Seroquel (Quetiapine Fumarate) 50 Mg Tablet 50 Mg PO PRN BID PRN Seroquel (Quetiapine Fumarate) 100 Mg Tablet 100 Mg PO QHS Seroquel Xr (Quetiapine Fumarate) 400 Mg Tab.er.24h 400 Mg PO QHS Levothyroxine Sodium 75 Mcg Tablet 75 Mcg PO DAILYAC Gabapentin 300 Mg Capsule 300 Mg PO TID Depakote Er (Divalproex Sodium) 250 Mg Tab.er.24h 750 Mg PO Klonopin (Clonazepam) 0.5 Mg Tablet 0.5 Mg PO PRN BID PRN Benztropine Mesylate 0.5 Mg Tablet 0.5 Mg PO BID Advair 500-50 Diskus (Fluticasone/Salmeterol) 1 Each Disk.w.dev 1 Each IH BID I have reviewed the current psychotropics carefully including drug interactions. Risk benefit ratio favors no change other than as noted in my dictated progress note. Diagnosis: Problems: (1) Anxiety disorder (2) Bipolar affective, mixed, sev w/ psych (3) Impulse control disorder SALLY CONTEH MD Dec 31, 2017 20:59
--- NOTE | 2018-01-01 00:12 | NUR ---
Nursing note: At shift change patient is happily sitting in the dayroom visiting with other patients. She was compliant with medications and assessment. Patient is A&OX4. Patient does complain of some pain in her neck. Patient states that it is a chronic thing for her, and if she has to go lay down because of it she doesn't want us to think she is depressed. Patient given PRN tylenol with HS medications to help with neck pain. Patient currently resting comfortably in bed.
[2018-01-01] MEDS ORDERED: ALBU2.5V14 NEB ×2 (00:52→00:53)
[2018-01-01] MEDS ORDERED: ACET325T9 PO (00:52)
[2018-01-01] MEDS ORDERED: DIVA500T4 PO (00:55)
[2018-01-01] MEDS ORDERED: BUDE0.5A11 NEB (00:55)
[2018-01-01] MEDS ORDERED: MAG30ORA2 PO (00:57)
[2018-01-01] MEDS ORDERED: MAGN2400 PO (00:57)
[2018-01-01] MEDS ORDERED: METH29OI TP (00:58)
[2018-01-01] MEDS ORDERED: QUET300T5 PO (00:59)
[2018-01-01] MEDS ORDERED: QUET200T4 PO (00:59)
[2018-01-01] MEDS ORDERED: OLAN2.5T3 PO (01:00)
[2018-01-01] MEDS: ALBUTEROL SULFATE 2.5 MG/3 ML NEBU. NEB SCH ×2 (03:57→11:32)
[2018-01-01] MEDS: LEVOTHYROXINE 75 MCG TABLET PO SCH (05:46)
[2018-01-01 06:31] VITALS: BP 116/67
[2018-01-01] MEDS: QUEtiapine 100 MG TABLET. PO SCH (07:56)
[2018-01-01] MEDS: BENZTROPINE MESYLATE 0.5 MG TABLET PO SCH (07:56)
[2018-01-01] MEDS: GABAPENTIN 300 MG CAPSULE. PO SCH (07:57)
--- NOTE | 2018-01-01 09:26 | NUR ---
[facility] Social Work Discharge Planning Form Patient Name MARTINA TAPIA Admit Date: 12/27/17 DISCHARGE PLAN Discharge Destination: Home PCP: Dr. Fortune Psychiatrist: [facility] DISCHARGE TO HOME: Address: [address] [place] [address] Responsible Democrat: [facility] Contact Information [phone] Psychiatrist/Mental Health Follow Up SundayJanuary 08 at 1:20pm Contact Information: [phone] Primary Care Follow Up Sunday at 1:30pm Contact Information [phone]
--- NOTE | 2018-01-01 10:15 | NUR ---
Behavior Intervention Response and Plan: BIRP Note: Behavior: Assumed Care of patient, patient located in Hallway at shift change. Patient exhibited the following behavior Wandering, Interactive, Calm. Brief assessment on rounds of vital signs, medication needs, lab studies, and pain. Treatment plan problems 1-2. Intervention: Patient assessed and the following interventions initiated safety checks 15 Minute Checks Cognitive Assessment , Head to toe Assessment , Medications. Response: After interactions and interventions patient responded in the following manner, Compliant , Interactive ,Cooperative. Continue to assess behaviors and condition will continue to monitor throughout the shift as needed. Patient educated on ADL's, and hand hygiene. Plan: Continue to monitor Master Treatment Plan for patient's progress toward short term goals of Improved Mood, No harm To self/ others, residential goals to return to previous living setting vs placement. Continue to assess patient for changes in above assessment. Monitor for medication needs, pain, and safety concerns. Hourly rounding performed to ensure safe environment.
[2018-01-01] MEDS: BUDESONIDE 0.5 MG/2 ML NEBU NEB SCH (11:32)
--- NOTE | 2018-01-01 11:46 | NUR ---
Transition Record was faxed to follow-up provider with the following elements: Reason for admission, procedures, tests, principal diagnosis, pending studies, patient instructions, 22/01 contact information for unit, phone number to obtain pending test results, plan for follow-up care, physician follow-up, advanced directive information, and medication list with dose, duration and instructions. This information was included in the following documents: History and physical, lab results, study results, progress notes, social work planning form, DC instruction form, patient visit summary, and medication reconciliation form. Date & time record faxed:12/31/17 [id number] Record faxed to:[facility] Record discussed with/ report given to: yunier Etienne
--- NOTE | 2018-01-01 18:10 | PDOC ---
Exam Note: Vance Note: Please also refer to the separate dictated note~for this date of service dictated separately.~Patient seen individually. Discussed the patient with Nursing staff reviewed the chart.~Reviewed interim history and current functioning. Reviewed vital signs,~Labs/ Radiology~and current medications noted below. Continue current treatment with the changes noted in the dictated addendum note Assessment: Vital Signs: Vital Signs Date Time Temp Pulse Resp B/P (MAP) Pulse Ox O2 Delivery O2 Flow Rate FiO2 01/01/18 11:32 100 Room Air 01/01/18 06:31 98.0 83 20 116/67 (83) I&O Intake and Output 01/01/18 07:00 Intake Total 1320 ml Balance 1320 ml Intake Oral 1320 ml Current Medications: Meds: Current Medications Acetaminophen (Tylenol) 650 mg PRN Q6HRS PRN PO PAIN / TEMP Last administered on 12/31/17at 20:13; Start 12/27/17 at 21:30; Stop 01/01/18 at 11:50; Status DC Multi-Ingredient Ointment (Analgesic [place]) 1 ashely PRN QID PRN TP MUSCLE PAIN; Start 12/27/17 at 21:30; Stop 01/01/18 at 11:50; Status DC Al Hydroxide/Mg Hydroxide (Mylanta Plus Xs) 15 ml PRN AFTMEALHC PRN PO DYSPEPSIA; Start 12/27/17 at 21:30; Stop 01/01/18 at 11:50; Status DC Magnesium Hydroxide (Milk Of Magnesia) 2,400 mg PRN QHS PRN PO CONSTIPATION; Start 12/27/17 at 21:30; Stop 01/01/18 at 11:50; Status DC Clonazepam (KlonoPIN) 0.5 mg PRN BID PRN PO AGITATION Last administered on at 01:22; Start 12/28/17 at 00:00; Stop 01/01/18 at 11:50; Status DC Non-Formulary Medication (Quetiapine Fumarate (Seroquel Xr)) 400 mg QHS PO ; Start 12/28/17 at 21:00; Stop 12/28/17 at 21:00; Status DC Quetiapine Fumarate (SEROquel) 50 mg PRN BID PRN PO AGITATION; Start 12/28/17 at 00:00; Stop 12/29/17 at 18:28; Status DC Quetiapine Fumarate (SEROquel) 100 mg QHS PO ; Start 12/28/17 at 21:00; Stop at 21:00; Status DC Divalproex Sodium (Depakote Sprinkles) 250 mg HS PO ; Start 12/28/17 at 21:00; Stop 12/28/17 at 21:00; Status DC Albuterol Sulfate (Ventolin Hfa) 1 puff PRN Q6HRS PRN INH SHORTNESS OF BREATH; Start 12/28/17 at 00:00; Stop 12/28/17 at 07:20; Status DC Gabapentin (Neurontin) 300 mg TID PO Last administered on 01/01/18at 07:57; Start 12/28/17 at 09:00; Stop 01/01/18 at 11:50; Status DC Levothyroxine Sodium (Synthroid) 75 mcg DAILY06 PO Last administered on at 05:46; Start 12/28/17 at 06:00; Stop 01/01/18 at 11:51; Status DC Benztropine Mesylate (Cogentin) 0.5 mg BID PO Last administered on 01/01/18at 07: 56; Start 12/28/17 at 09:00; Stop 01/01/18 at 11:51; Status DC Non-Formulary Medication (Fluticasone/ Salmeterol (Advair 500-50 Diskus)) 1 each BID IH ; Start 12/28/17 at 09:00; Stop 12/28/17 at 09:00; Status DC Meloxicam (Mobic) 7.5 mg DAILY PO Last administered on 12/28/17at 08:35; Start 12/28/17 at 09:00; Stop 12/28/17 at 12:57; Status DC Albuterol Sulfate (Ventolin) 2.5 mg Q6HRS NEB Last administered on 01/01/18at 11: 32; Start 12/28/17 at 12:00; Stop 01/01/18 at 11:51; Status DC Albuterol Sulfate (Ventolin) 2.5 mg PRN Q6HRS PRN NEB SHORTNESS OF BREATH; Start 12/28/17 at 07:30; Stop 01/01/18 at 11:51; Status DC Budesonide (Pulmicort) 0.5 mg RTBID NEB Last administered on 01/01/18at 11:32; Start 12/28/17 at 08:00; Stop 01/01/18 at 11:51; Status DC Quetiapine Fumarate (SEROquel) 200 mg DAILY PO Last administered on 01/01/18at 07 :56; Start 12/28/17 at 09:00; Stop 01/01/18 at 11:51; Status DC Quetiapine Fumarate (SEROquel) 300 mg HS PO Last administered on 12/31/17at 20:04 ; Start 12/28/17 at 21:00; Stop 01/01/18 at 11:51; Status DC Divalproex Sodium (Depakote Sprinkles) 750 mg HS PO ; Start 12/28/17 at 21:00; Stop 12/28/17 at 21:00; Status DC Divalproex Sodium (Depakote Er) 1,000 mg QHS PO Last administered on 12/31/17at 20:11; Start 12/28/17 at 21:00; Stop 01/01/18 at 11:51; Status DC Olanzapine (ZyPREXA ZYDIS) 2.5 mg PRN Q2HR PRN PO PSYCHOSIS; Start 12/29/17 at 18:30; Stop 01/01/18 at 11:51; Status DC Active Scripts Active Reported Zyprexa (Olanzapine) 2.5 Mg Tablet 2.5 Mg PO PRN Q2HR PRN max 10mg/24hrs Seroquel (Quetiapine Fumarate) 300 Mg Tablet 300 Mg PO QHS Seroquel (Quetiapine Fumarate) 200 Mg Tablet 200 Mg PO DAILY Analgesic [place] (Methyl Salicylate/Menthol) 28 Gm Oint...g. 1 Ashely TP PRN QID PRN Milk Of Magnesia (Magnesium Hydroxide) 2,400 Mg/10 Ml Oral.susp 2,400 Mg PO PRN QHS PRN Mag-Al Plus Xs Suspension (Mag Hydrox/Al Hydrox/Simeth) 30 Ml Oral.susp 15 Ml PO PRN AFTMEALHC PRN Depakote Er (Divalproex Sodium) 500 Mg Tab.er.24h 1,000 Mg PO QHS Budesonide 0.5 Mg/2 Ml Ampul.neb 0.5 Mg NEB BID Albuterol Sulfate Conc Neb Soln (Albuterol Sulfate) 2.5 Mg/0.5 Ml Vial.neb 2.5 Mg NEB PRN Q6HRS PRN Albuterol Sulfate Conc Neb Soln (Albuterol Sulfate) 2.5 Mg/0.5 Ml Vial.neb 2.5 Mg NEB Q6HRS Tylenol (Acetaminophen) 325 Mg Tablet 650 Mg PO PRN Q6HRS PRN Levothyroxine Sodium 75 Mcg Tablet 75 Mcg PO DAILY06 Gabapentin 300 Mg Capsule 300 Mg PO TID Klonopin (Clonazepam) 0.5 Mg Tablet 0.5 Mg PO PRN BID PRN Benztropine Mesylate 0.5 Mg Tablet 0.5 Mg PO BID I have reviewed the current psychotropics carefully including drug interactions. Risk benefit ratio favors no change other than as noted in my dictated progress note. Diagnosis: Problems: (1) Impulse control disorder (2) Bipolar affective, mixed, sev w/ psych (3) Anxiety disorder SALLY CONTEH MD Jan 01, 2018 18:10
--- NOTE | 2018-01-01 21:39 | PN ---
DATE: 12/31/2017 PSYCHIATRIC PROGRESS NOTE This is a late entry 12/31/2017 covers elements not covered in my initial note 12/31/2017. SUBJECTIVE: I met with the patient in the evening. The patient slept 6 hours previous evening, remains somewhat hyperverbal, but valproic acid level is therapeutic. The patient showed me a detailed note from her daughter who wants the patient discharged 01/01/2018 as she feels the patient is doing much better. The note says that the daughter has been a psychiatric nurse for over 20 years and will be closely involved in the patient's care back home. REVIEW OF SYSTEMS: No CV, , pulmonary, eye, ENT system symptoms on review. MENTAL STATUS EXAM: Oriented to herself and situation. Speech coherent, rapid at times, less pressured. Abstraction fair, computation impaired, language function intact. Attention span short. No suicidal or homicidal ideation. LABORATORY DATA: Reviewed. IMPRESSION: Bipolar 1 disorder, manic with psychotic features, in partial remission. Rest unchanged. PLAN: Continue psychotropics from my initial note. MAN Rani CONTEH MD DR: ORLANDO/pranav JOB#: [id number] / [id number]
--- NOTE | 2018-01-02 22:45 | DS ---
DATE OF DISCHARGE: 01/01/2018 This late entry 01/01/2018 covers elements not covered in my initial note 01/01/2018, admitted 12/27/2017 and discharge 01/01/2018. REASON FOR ADMISSION: Please refer to the admission history for details. Briefly, the patient is a 72-year-old female referred from the Emergency Room where she presented from home after making suicidal statements with a plan to slit her wrist. She was paranoid, thinks someone was in her home, delusional, hyperverbal, manic. All of this is within her history of bipolar disorder with acute exacerbation, recent onset of psychotic symptoms. She had failed outpatient psychiatric interventions. SIGNIFICANT FINDINGS AND CLINICAL COURSE: Following admission, the patient was seen daily individually by myself, followed medically per Dr. Haywood/Dr. Mcghee. She is extremely hyperverbal, manic, grandiose, paranoid, psychotic at admission. Records were reviewed from the [facility]. Psychotropics were adjusted and she seemed to respond to a combination of Klonopin 0.5 mg b.i.d. p.r.n. anxiety and she is also on Cogentin 0.5 mg b.i.d., Depakote ER was adjusted to 1000 mg p.o. at bedtime with a therapeutic level, Seroquel was 200 mg in the morning and 300 mg at night, Zyprexa p.r.n. Gradually, the patient's mood appeared to improve. She was less hyperverbal, less manic and psychotic. Denied suicidal ideation. Prior to discharge, 01/01/2018. REVIEW OF SYSTEMS: No CV, , pulmonary, eye, ENT system symptoms on review. Reliability varies. MENTAL STATUS EXAM: Oriented to herself and situation. Speech coherent, rapid, less so than before. Abstraction fair, computation impaired, language function intact. Mood and affect less grandiose, less labile, psychotic symptoms appear to have subsided and no suicidal ideation prior to discharge. CONDITION AT DISCHARGE: Improved. FINAL DIAGNOSES: Bipolar 1 disorder, manic with psychotic features, in partial remission; anxiety disorder, unspecified; impulse control disorder, unspecified. Rest diagnoses as above. The patient had been seen in the Emergency Room at [facility] in [place] prior to this admission as well. DISCHARGE MEDICATIONS: Please refer to the EMRAD. DISCHARGE INSTRUCTIONS: Outpatient psychiatric and medical followup has arranged prior to discharge. Time for discharge day management greater than 30 minutes. SALLY CONTEH MD DR: [place]/pranav JOB#: [id number] / [id number]
== END 2018-01-01 11:50 | disposition home or self-care (01) | DRG 885 ==
LOC: ER 16:37 → GEROPSY 20:32
PROVIDERS: ADMIT Psychiatry & Neurology Psychiatry; ATTEND Psychiatry & Neurology Psychiatry
DX: F31.64 Bipolar disorder, current episode mixed, severe, with psychotic features (principal); F31.2 Bipolar disorder, current episode manic severe with psychotic features; F09 Unspecified mental disorder due to known physiological condition; E03.9 Hypothyroidism, unspecified; E86.0 Dehydration; F41.9 Anxiety disorder, unspecified; F63.9 Impulse disorder, unspecified; J45.909 Unspecified asthma, uncomplicated; Z79.899 Other long term (current) drug therapy; Z86.711 Personal history of pulmonary embolism; Z86.718 Personal history of other venous thrombosis and embolism
CPT/HCPCS: 36415; 80053; 80061; 80164; 81001; 82306; 82607; 83036; 83540; 83550; 83735; 84436; 84443; 84480; 85025; 86592; 87086; 93005; 94640; J7613; J7626; 97530; 97535; 99285-25